=== PATIENT | female | born 1965 | race African-American/Black ===

== ENCOUNTER 2017-01-15 11:32 | Emergency (ER) | payer MEDICAID, OTHER ==
[~2017-01-15] VITALS: Ht 165.1 cm; Wt 55.0 kg
[~2017-01-15 11:32] MED LIST: HYDROCHLOROTHIAZIDE 50 MG; KLOR-CON; METOPROLOL; MOTRIN 800 MG; NEXIUM; POTASSIUM; [UNRECOGNIZED DRUG - CODE]
[2017-01-15 11:55] LABS: HEMATOCRIT. 28.8 % (36.0-48.0); HEMOGLOBIN. 9.4 g/dL (12.0-16.0); MEAN CORPUSCULAR HEMOGLOBIN 25.2 pg (28.0-32.0); MEAN CORPUSCULAR VOLUME 77.4 fL (81.0-99.0); MEAN PLATELET VOLUME 7.8 fl (7.4-10.4); PLATELET 325 x1000/uL (130-400); RED BLOOD CELL COUNT 3.72 mill/uL (4.2-5.4); RED CELL DISTRIBUTION WIDTH 17.7 % (11.6-14.6)
[2017-01-15 12:04] LABS: INR 1.2; PROTHROMBIN TIME 12.7 sec
[2017-01-15 12:07] LABS: CARBON DIOXIDE 26 mEq/L (21-32); CHLORIDE 111 mEq/L (98-107); ETHANOL BLOOD < 10 mg/dL
[2017-01-15 12:33] LABS: CLARITY URINE CLEAR (CLEAR); COLOR URINE YELLOW (YELLOW); GLUCOSE URINE NEGATIVE (NEGATIVE); KETONES URINE TRACE (NEGATIVE); LEUKOCYTE ESTERASE URINE 1+ (NEGATIVE); NITRITE URINE NEGATIVE (NEGATIVE); OCCULT BLOOD URINE 1+ (NEGATIVE); PH URINE 6.5 (4.5-8.0); PROTEIN URINE TRACE (NEGATIVE); SPECIFIC GRAVITY URINE 1.035 (1.005-1.030)
[2017-01-15 12:44] LABS: PLATELET ESTIMATE NORMAL
[2017-01-15 13:05] LABS: *AMPHETAMINES SCREEN URINE PRESUMTIVE POSITIVE (NEGATIVE); *BARBITURATES SCREEN URINE NEGATIVE (NEGATIVE); *BENZODIAZEPINES SCREEN URINE NEGATIVE (NEGATIVE); *COCAINE SCREEN URINE NEGATIVE (NEGATIVE); CANNABINOID URINE SCREEN NEGATIVE (NEGATIVE); METHADONE URINE SCREEN NEGATIVE (NEGATIVE); OPIATES URINE SCREEN NEGATIVE (NEGATIVE); PHENCYCLIDINE URINE SCREEN NEGATIVE (NEGATIVE)
[2017-01-15] MEDS ORDERED: POTASSIUM CHLORIDE 20MEQ TABLET SR PO ONE (13:15)
[2017-01-15] MEDS ORDERED: IBUPROFEN 600MG TABLET PO ONE (13:45)
[2017-01-15 14:07] VITALS: BP 120/79
== END 2017-01-15 14:44 | disposition home or self-care (01) ==
LOC: ER 11:36
DX: T14.8 Other injury of unspecified body region (principal); R55 Syncope and collapse; N30.00 Acute cystitis without hematuria; F15.10 Other stimulant abuse, uncomplicated; N28.9 Disorder of kidney and ureter, unspecified; I10 Essential (primary) hypertension; W18.30XA Fall on same level, unspecified, initial encounter; Y93.01 Activity, walking, marching and hiking; Y92.89 Other specified places as the place of occurrence of the external cause; Y99.8 Other external cause status
CPT/HCPCS: 36415; 70450; 71010; 80053; 80305; 81001; 82962; 85025; 85610; 93005; 99285; G0482; Z7610

== ENCOUNTER 2017-12-16 02:04 | Emergency (ER) | payer MEDICAID ==
[~2017-12-16] VITALS: Ht 165.1 cm; Wt 57.0 kg
[2017-12-16 05:36] LABS: BASOPHILS % 1.2 % (0.0-2.0); EOSINOPHILS % 7.8 % (0.0-5.0); HEMATOCRIT. 32.5 % (36.0-48.0); HEMOGLOBIN. 10.4 g/dL (12.0-16.0); LYMPHOCYTES % 19.8 % (20.0-50.0); MEAN CORPUSCULAR HEMOGLOBIN 25.1 pg (28.0-32.0); MEAN CORPUSCULAR VOLUME 78.3 fL (81.0-99.0); MEAN PLATELET VOLUME 7.9 fl (7.4-10.4); MONOCYTES % 13.5 % (2.0-8.0); NEUTROPHILS % 57.7 % (40.0-76.0); PLATELET 405 x1000/uL (130-400); RED BLOOD CELL COUNT 4.15 mill/uL (4.2-5.4)
[2017-12-16 05:42] LABS: CHLORIDE 110 mEq/L (98-107)
[2017-12-16 05:44] LABS: INR 1.1
[2017-12-16 05:58] LABS: CLARITY URINE CLEAR (CLEAR); COLOR URINE YELLOW (YELLOW); KETONES URINE NEGATIVE (NEGATIVE); LEUKOCYTE ESTERASE URINE TRACE (NEGATIVE); NITRITE URINE NEGATIVE (NEGATIVE); OCCULT BLOOD URINE NEGATIVE (NEGATIVE); PROTEIN URINE NEGATIVE (NEGATIVE); SPECIFIC GRAVITY URINE 1.025 (1.005-1.030); UROBILINOGEN URINE 0.2 E.U./dL (0.2-1.0)
[2017-12-16] MEDS ORDERED: OLANZAPINE 5MG TABLET PO SCH (06:45)
[2017-12-16 08:41] VITALS: BP 128/79
== END 2017-12-16 08:45 | disposition home or self-care (01) ==
LOC: ER 02:04
DX: N39.0 Urinary tract infection, site not specified (principal); D50.9 Iron deficiency anemia, unspecified; F17.200 Nicotine dependence, unspecified, uncomplicated
CPT/HCPCS: 36415; 80053; 81003; 83690; 85025; 85610; 99284